=== PATIENT | female | born 1965 | race Caucasian/White ===

== ENCOUNTER 2020-10-25 01:04 | Outpatient (CLI) | payer MEDICAID, SELFPAY ==
--- NOTE | 2020-10-25 | DI.MRI_ITS ---
Exam(s) MR LOWER JOINT RT WO EXAM: MR LOWER JOINT RT WO CLINICAL HISTORY: OA RT KNEE JOINT,M17.11 TECHNIQUE: Multiplanar multisequence MRI of the knee was performed. COMPARISON: CR,DX XR KNEE 3V RT from 11/05/2016 MR MR KNEE RT WO CONTRAST from 11/25/2016 MR MR KNEE RT WO CONTRAST from 11/25/2016 CR XR KNEE 3V RT from 09/21/2020 FINDINGS: EFFUSION: There is a prominent knee joint effusion. There is also a Gutierrez cyst in the medial poplite al fossa which measures 5 cm cephalocaudal length by 1.5 cm AP x 1 cm wide. There is no obvious loos e intra-articular body evident within the joint fluid. MARROW:There is no evidence of fracture, bone contusion, nor osteochondral defects.. There are no si gnificant osseous lesions. PATELLOFEMORAL COMPARTMENT: The quadriceps tendon is intact. The patellar ligament is intact. There is moderate thinning of the retropatellar cartilage over both medial lateral facets. Small foci of degenerative subarticular signal are seen in the posterior patella over the lateral fac et. There are no patellar retinacular tears. No intraosseous signal to suggest recent patellar disl ocation. CRUCIATE LIGAMENTS: The anterior cruciate ligament is intact.Its appearance is unchanged from the Nov 2017 MRI study. Posterior cruciate ligament is also intact. MEDIAL COMPARTMENT/MEDIAL MENISCUS: There is complex tear now evident in the posterior horn medial me niscus with both horizontal and oblique components, this finding not evident on the 2017 study. Ther e is 3 millimeters extrusion with outward bowing of the otherwise intact medial collateral ligament. There is no degenerative subarticular cyst. The tear extends towards the but does not grossly invol ve the anterior horn. There is mild subarticular edema in the medial femoral condyle and some cartil age loss over the weight-bearing surface of the femoral condyle. Small marginal osteophytes evident. No osteochondral defect MEDIAL COLLATERAL LIGAMENT: Outward bowed but otherwise intact LATERAL COMPARTMENT/LATERAL MENISCUS: There is no evidence of lateral meniscal tear.Minimal cartilage changes over the lateral condyle. No subarticular edema nor osteochondral defects in the lateral co mpartment. No marginal osteophytes. ILIOTIBIAL BAND: Intact LATERAL COLLATERAL LIGAMENT COMPLEX: The fibular collateral ligament is intact. The biceps femoris t endon is intact.There is some fluid in the popliteus tendon sheath but no tear of this structure. IMPRESSION: 1. Compared to the prior MRI scan of November 2016 there is now a complex tear of the posterior horn of t he medial meniscus which exhibits both horizontal and oblique components. There is an element of men iscal extrusion but no degenerative meniscal cyst. There is no flipped fragment evident. Some degen erative change medial compartment also noted. 2. Lateral meniscus is intact. Minimal degenerative changes in the lateral compartment. 3. Cruciate and collateral ligaments are intact as is the iliotibial band. 4. There is a prominent joint effusion and there is also a Gutierrez cyst in the medial popliteal fossa w hich exhibits cephalocaudal length 5 cm. No evidence of debris nor intra-articular body within the B isabell's cyst. DATA REPOSITORY:
== END 2020-10-25 01:24 ==
PROVIDERS: Visit Provider Orthopaedic Surgery
DX: M25.561 Pain in right knee (principal); M17.11 Unilateral primary osteoarthritis, right knee; S83.241A Other tear of medial meniscus, current injury, right knee, initial encounter; M25.461 Effusion, right knee; M71.21 Synovial cyst of popliteal space [Baker], right knee
CPT/HCPCS: 73721

== ENCOUNTER 2024-08-04 15:24 | Outpatient (CLI) | payer MEDICAID, SELFPAY ==
--- NOTE | 2024-08-04 08:45 | DI.RAD_ITS ---
Exam(s) XR STANDING ALIGNMENT XR KNEE RT 1V EXAM: XR STANDING ALIGNMENT and XR knee RT 1 V CLINICAL HISTORY: knee pain. TECHNIQUE: 2D digital imaging was performed. Five images were obtained. COMPARISON: CR XR KNEE 3V RT from 09/21/2020 CR XR KNEE 3V RT from 03/06/2022 CR XR KNEE COMPLETE MIN 4V RT from 05/14/2023 FINDINGS: BONES: There is a mild left convex scoliosis of the lumbar spine. The hips are well maintained. In the right knee, there is marked narrowing of the medial femoral tibial joint. Osteophytes are seen i nvolving all 3 joint compartments. There is a small joint effusion. There are dystrophic calcificat ions adjacent to the medial proximal tibia. In the left knee, there is mild joint space narrowing of the medial femoral tibial joint. Osteophytes are seen both medially and laterally. The ankles are well maintained.There is no significant leg length discrepancy. SOFT TISSUE: Normal. IMPRESSION: Bilateral osteoarthritis of the knees, right greater than left. DATA REPOSITORY: RADIATION DOSE DELIVERED:
== END 2024-08-04 15:25 | disposition home or self-care (01) ==
LOC: DIORS 15:25
PROVIDERS: Visit Provider Physician Assistant
DX: M17.0 Bilateral primary osteoarthritis of knee
CPT/HCPCS: 73560; 77073

== ENCOUNTER 2025-01-05 02:34 | Outpatient (CLI) | payer OTHER, SELFPAY ==
[2025-01-05 14:59] LABS: HCT 41.0 % (36.0-46.0); HGB 13.4 g/dL (11.2-15.7); MCH 29.1 pg (27.0-33.0); MCHC 32.7 % (32.0-36.0); MCV 89 fL (80-95); MPV 10.2 fL (8.0-11.0); Platelet Count 283 10^3/uL (130-400); RBC 4.60 10^6/uL (3.93-5.22); RDW 13.4 % (11.7-14.6); RDW-SD 44.2 fL; WBC 9.07 10^3/uL (4.4-10.8)
[2025-01-05 16:00] LABS: Anion Gap 9.4 mmol/L (3-11); BUN 21 mg/dL (7-18); CO2 29.6 mmol/L (21.0-32.0); Calcium 10.0 mg/dL (8.5-10.1); Chloride 101 mmol/L (98-107); Estimated GFR 74.10 (mL/min/1.73m2); Glucose 93 mg/dL (74-106); Potassium 4.0 mmol/L (3.5-5.1); Sodium 140 mmol/L (136-145); TSH 0.02 uIU/mL (0.36-3.74)
== END 2025-01-05 02:35 | disposition home or self-care (01) ==
LOC: LBO 02:35
PROVIDERS: PCP Internal Medicine; Visit Provider Student in an Organized Health Care Education/Training Program
DX: M17.11 Unilateral primary osteoarthritis, right knee (principal); Z01.818 Encounter for other preprocedural examination; E03.9 Hypothyroidism, unspecified
CPT/HCPCS: 36415; 80048; 85027; 84443

== ENCOUNTER 2025-01-17 08:08 | Day surgery (SDC) | payer OTHER, SELFPAY ==
--- NOTE | 2025-01-17 07:13 | W.PM.DSUDISC ---
Date of service: 01/17/25 Discharge Plan Disposition Patient Disposition: Home Condition: Good Discharge Details Reason For Visit: Right knee DJD Attending Provider: Renan Ayers Primary Care Provider: Heather Wills Home Meds and New Rx's Prescriptions: New acetaminophen 500 mg tablet 1,000 mg PO Q8H PRN Qty: 90 0RF Rx Instructions: Take two tablets up to every 8 hours as needed for pain aspirin 81 mg tablet,delayed release (DR/EC) 81 mg PO BID 30 Days Qty: 60 0RF celecoxib [Celebrex] 200 mg capsule 200 mg PO BID PRNQty: 60 0RF Rx Instructions: Take one tablet twice daily for pain and inflammation docusate sodium [Colace] 100 mg capsule 100 mg PO BID Qty: 28 0RF dexamethasone 4 mg tablet 4 mg PO DAILY Qty: 2 0RF Rx Instructions: Take one tablet once daily for two days gabapentin 300 mg capsule 300 mg PO QHS Qty: 14 0RF Rx Instructions: Take one tablet at bedtime oxycodone 5 mg tablet 5 mg PO Q4H PRNQty: 18 0RF Rx Instructions: Take one tablet up to every 4 hours as needed for severe postoperative pain Continued atorvastatin 10 mg tablet 10 mg PO DAILY hydrochlorothiazide 25 mg tablet 25 mg PO DAILY levothyroxine 112 mcg capsule 112 mcg PO DAILY lisinopril 2.5 mg tablet 2.5 mg PO DAILY omeprazole 20 mg capsule,delayed release(DR/EC) 20 mg PO DAILY Discharge Instructions Additional Instructions: Total Knee Discharge Instructions Activity: The most important activity is to walk and to work on gentle motion (both flexion and extension). You should try to take short walks a few times a day. It is important that when resting you work on keeping the knee straight. Avoid putting a pillow behind the knee as this will encourage flexion. Work on range of motion exercises as provided by Physical Therapy. - Start outpatient physical therapy within 2 weeks. - You should wear the AVRIL hose on both legs for 2 weeks. You may remove these at night. You may also use any compression sock in place of the AVRIL hose. - Utilize [employer] to review exercises, see videos on exercises and obtain basic information pertaining to your surgery and your recovery. Dressing: Remove the Gustavo wrap by 2 days after your surgery and put on the AVRIL stocking given to you from the hospital. Keep the surgical dressing (underneath the GUSTAVO wrap) in place for at least one week. After the first week it may be removed and replaced with light gauze and tape or nothing. The wound and dressing may get wet after 3 days but avoid soaking the dressing or otherwise it will need to be changed. Many people prefer covering the dressing with cling wrap (saran wrap) to minimize it from getting soaked. If it gets wet, just pat dry. If it starts to peel off then it will need to be changed. Medications: - You should take Tylenol and anti-inflammatory Celebrex as your primary pain control medications. If the Celebrex is too expensive or not covered, please call the office for another alternative (Advil/Ibuprofen or Naproxen/Aleve) - You have been prescribed a stronger pain medication Oxycodone for breakthrough pain, take as needed as prescribed. - You take a stomach acid reduction agent Omeprazole at baseline - continue with this medication to help reduce stomach acid and reflux. - You have been prescribed Gabapentin to take at night for restlessness and nerve pain. - You will be taking Aspirin 81mg twice a day for DVT prevention unless instructed otherwise. - You have also been prescribed Decadron to take to control post-operative nausea and pain. You will start this tomorrow. - If you have constipation you should take Colace (which has been prescribed) or Miralax (which is available [id number]). It takes most people 3-4 days to have a bowel movement. Follow-up: 2 weeks If you have any acute concerns or questions, please do not hesitate to contact the office at [phone]. You may contact Dr. Ayers with any questions after hours through the hospital at [phone] or on his cell phone at [phone]. Referrals: Renan Ayers MD [ [facility] STAFF PHYSICIAN, Orthopaedic Surgical] Equipment/Supplies: Walker Activity:: Elevate Remove Dressings/Wound Care:: Do Not Remove Shower/Bathe:: Cover Diet:: As Tolerated Discharge Orders Discharge Orders: Discharge Order (Routine); Ordered 01/17/25 Ordered By: Shelby Garcia
[2025-01-17 08:40] VITALS: BP 131/71; PULSE 89; RESP 16; TEMP 36.3; O2SAT 100
[2025-01-17] MEDS: Gabapentin 300 MG CAP PO (08:56)
[2025-01-17] MEDS: Acetaminophen 500 MG TAB 1000 MG PO (08:56)
[2025-01-17] MEDS: Celecoxib 200 MG CAP 400 MG PO (08:56)
[2025-01-17] MEDS: Lactated Ringers 1,000 ML 80 ML IV (09:08)
--- NOTE | 2025-01-17 09:39 | PDOC.ANES ---
Date of service: 01/17/25 Time of Service: 09:30 Anesthesia Note Report Anesthesia Note: Semaglutide was not on original med list. semaglutide found in cardiac note med list and pt confirmed she is taking semaglutide and last dose was thursday. discussed prohibitive risk of gastric aspiration with pt and reason to cancel elective prceudre; pt verbalised understanding
--- NOTE | 2025-01-17 09:40 | NUR.NOTE ---
Nursing Note: patient's surgical case was cancelled today related to medication the patient had been taking. Patient's IV was already in place and had gotten pre-op cocktail, patient's IV was D/C'd prior to discharge. patient dressed self and left building at 0942.
== END 2025-01-17 08:09 | disposition home or self-care (01) ==
LOC: SUR 08:08
PROVIDERS: PCP Internal Medicine; Visit Provider Student in an Organized Health Care Education/Training Program
DX: Z53.8 Procedure and treatment not carried out for other reasons (principal); Z79.899 Other long term (current) drug therapy; M17.11 Unilateral primary osteoarthritis, right knee
CPT/HCPCS: J0665; J0666; J1100; J2003; J2250; J2401; J2405

== ENCOUNTER 2025-02-08 06:00 | Day surgery (SDC) | payer OTHER, SELFPAY ==
[2025-02-08] VITALS (17 sets, daily range): BP systolic 97–141; BP diastolic 47–81; PULSE 67–81; RESP 11–24; TEMP 36–37; O2SAT 90–100; BMI 37.7
[2025-02-08] MEDS: Gabapentin 300 MG CAP PO (06:40)
[2025-02-08] MEDS: Acetaminophen 500 MG TAB 1000 MG PO (06:40)
[2025-02-08] MEDS: Celecoxib 200 MG CAP 400 MG PO (06:40)
[2025-02-08] MEDS: Lactated Ringers 1,000 ML 80 ML IV (06:41)
--- NOTE | 2025-02-08 07:04 | W.PM.DSUDISC ---
Date of service: 02/08/25 Discharge Plan Disposition Patient Disposition: Home Condition: Good Discharge Details Reason For Visit: Right knee DJD Attending Provider: Renan Ayers Primary Care Provider: Heather Wills Home Meds and New Rx's Prescriptions: New acetaminophen 500 mg tablet 1,000 mg PO Q8H PRN Qty: 90 0RF Rx Instructions: Take two tablets up to every 8 hours as needed for pain aspirin 81 mg tablet,delayed release (DR/EC) 81 mg PO BID 30 Days Qty: 60 0RF celecoxib [Celebrex] 200 mg capsule 200 mg PO BID PRNQty: 60 0RF Rx Instructions: Take one tablet twice daily for pain and inflammation docusate sodium [Colace] 100 mg capsule 100 mg PO BID Qty: 28 0RF dexamethasone 4 mg tablet 4 mg PO DAILY Qty: 2 0RF Rx Instructions: Take one tablet once daily for two days gabapentin 300 mg capsule 300 mg PO QHS Qty: 14 0RF Rx Instructions: Take one tablet at bedtime oxycodone 5 mg tablet 5 mg PO Q4H PRNQty: 18 0RF Rx Instructions: Take one tablet up to every 4 hours as needed for severe postoperative pain Continued atorvastatin 10 mg tablet 10 mg PO DAILY hydrochlorothiazide 25 mg tablet 25 mg PO DAILY levothyroxine 112 mcg capsule 112 mcg PO DAILY lisinopril 2.5 mg tablet 2.5 mg PO DAILY omeprazole 20 mg capsule,delayed release(DR/EC) 20 mg PO DAILY Wegovy 2.4 mg/0.75 mL pen injector 2.4 mg SUBCUT DIRECTED Discharge Instructions Additional Instructions: Total Knee Discharge Instructions Activity: The most important activity is to walk and to work on gentle motion (both flexion and extension). You should try to take short walks a few times a day. It is important that when resting you work on keeping the knee straight. Avoid putting a pillow behind the knee as this will encourage flexion. Work on range of motion exercises as provided by Physical Therapy. - Start outpatient physical therapy within 2 weeks. - You should wear the AVRIL hose on both legs for 2 weeks. You may remove these at night. You may also use any compression sock in place of the AVRIL hose. - Utilize [employer] to review exercises, see videos on exercises and obtain basic information pertaining to your surgery and your recovery. Dressing: Remove the Gustavo wrap by 2 days after your surgery and put on the AVRIL stocking given to you from the hospital. Keep the surgical dressing (underneath the GUSTAVO wrap) in place for at least one week. After the first week it may be removed and replaced with light gauze and tape or nothing. The wound and dressing may get wet after 3 days but avoid soaking the dressing or otherwise it will need to be changed. Many people prefer covering the dressing with cling wrap (saran wrap) to minimize it from getting soaked. If it gets wet, just pat dry. If it starts to peel off then it will need to be changed. Medications: - You should take Tylenol and anti-inflammatory Celebrex as your primary pain control medications. If the Celebrex is too expensive or not covered, please call the office for another alternative (Advil/Ibuprofen or Naproxen/Aleve) - You have been prescribed a stronger pain medication Oxycodone for breakthrough pain, take as needed as prescribed. - You take a stomach acid reduction agent Omeprazole at baseline - continue with this medication to help reduce stomach acid and reflux. - You have been prescribed Gabapentin to take at night for restlessness and nerve pain. - You will be taking Aspirin 81mg twice a day for DVT prevention unless instructed otherwise. - You have also been prescribed Decadron to take to control post-operative nausea and pain. You will start this tomorrow. - If you have constipation you should take Colace (which has been prescribed) or Miralax (which is available [id number]). It takes most people 3-4 days to have a bowel movement. Follow-up: 2 weeks If you have any acute concerns or questions, please do not hesitate to contact the office at [phone]. You may contact Dr. Ayers with any questions after hours through the hospital at [phone] or on his cell phone at [phone]. Referrals: Renan Ayers MD [ [facility] STAFF PHYSICIAN, Orthopaedic Surgical] Equipment/Supplies: Walker Activity:: Elevate Remove Dressings/Wound Care:: Do Not Remove Shower/Bathe:: Cover Diet:: As Tolerated Discharge Orders Discharge Orders: Discharge Order (Routine); Ordered 02/08/25 Ordered By: Shelby Garcia
--- NOTE | 2025-02-08 07:08 | W.ANESPRE ---
General Info Date of Service Date Performed: 02/08/25 Height: 5 ft 4 in Weight: 99.7 kg Body Mass Index (BMI): 37.7 Surgical Procedure: Operation Date: 02/08/25 07:40 Proposed Procedure Side Surgeon p Knee Total Arthroplasty, Cementless CR Right Renan Ayers MD Meds Allergies and Home Medications Allergies Allergy/AdvReac Type Severity Reaction Status Date / Time codeine Allergy Mild Hives Verified 02/08/25 06:14 Penicillins Allergy Mild Hives Verified 02/08/25 06:14 Home Medication ?Medication ?Instructions ?Recorded atorvastatin 10 mg tablet 10 mg PO DAILY 07/19/24 hydrochlorothiazide 25 mg tablet 25 mg PO DAILY 07/19/24 levothyroxine 112 mcg capsule 112 mcg PO DAILY 07/19/24 lisinopril 2.5 mg tablet 2.5 mg PO DAILY 07/19/24 omeprazole 20 mg capsule,delayed 20 mg PO DAILY 07/19/24 release semaglutide (weight loss) 2.4 2.4 mg subcut DIRECTED 02/07/25 mg/0.75 mL subcutaneous pen injector (Wegovy) acetaminophen 500 mg tablet 1,000 mg (2 x 500 mg) PO Q8H PRN 02/08/25 pain #90 tabs aspirin 81 mg tablet,delayed 81 mg PO BID 30 days #60 tabs 02/08/25 release celecoxib 200 mg capsule (Celebrex) 200 mg PO BID PRN #60 caps 02/08/25 dexamethasone 4 mg tablet 4 mg PO DAILY #2 tabs 02/08/25 docusate sodium 100 mg capsule 100 mg PO BID #28 caps 02/08/25 (Colace) gabapentin 300 mg capsule 300 mg PO QHS #14 caps 02/08/25 oxycodone 5 mg tablet 5 mg PO Q4H PRN #18 tabs 02/08/25 Current Visit Medications: Current Medications Generic Name Dose Route Start Last Admin Trade Name Freq PRN Reason Stop Dose Admin Acetaminophen 1,000 mg 02/08/25 06:00 02/08/25 06:40 Acetaminophen 500 Mg Tab PO 02/08/25 23:59 1,000 mg PREOP MILES Administration Celecoxib 400 mg 02/08/25 06:00 02/08/25 06:40 Celecoxib 200 Mg Cap PO 02/08/25 23:59 400 mg PREOP MILES Administration Gabapentin 300 mg 02/08/25 06:00 02/08/25 06:40 Gabapentin 300 Mg Cap PO 02/08/25 23:59 300 mg PREOP MILES Administration Hydromorphone HCl 0.5 mg 02/08/25 07:01 Hydromorphone 2 Mg/Ml Syr IVP 03/10/25 07:00 Q2H PRN PRN Ringer's Solution 1,000 mls @ 80 mls/hr 02/08/25 06:00 02/08/25 06:41 IV 02/08/25 23:59 80 mls/hr INFUSION MILES Administration Cefazolin Sodium/Dextrose 2 gm in 50 mls @ 100 mls/hr 02/08/25 06:00 Ancef Duplex IVPB 02/08/25 23:59 PREOP MILES Tranexamic Acid/Sodium Chloride 1,000 mg in 100 mls @ 600 mls/hr 02/08/25 06:00 IVPB 02/08/25 23:59 PREOP MILES Cefazolin Sodium/Dextrose 1 gm in 50 mls @ 100 mls/hr 02/08/25 08:00 Ancef Duplex IVPB 02/09/25 00:29 Q8H MILES IV Miscellaneous Supplies 1 each 02/08/25 06:00 Iv Access IV 02/08/25 23:59 DIRECTED MLIES Oxycodone HCl 0 mg 02/08/25 07:01 Oxycodone 5 Mg Tab PO 03/10/25 07:00 Q3H PRN PRN Pain Sodium Chloride 0 ml 02/08/25 06:00 Normal Saline Flush 10 Ml Syr IV 02/08/25 23:59 PRN PRN Sodium Chloride 0 ml 02/08/25 06:00 Normal Saline 10 Ml Vial IJ 02/08/25 23:59 DIRECTED PRN Sterile Water 0 ml 02/08/25 06:00 Water,Injection,Sterile 10 Ml Vial IJ 02/08/25 23:59 DIRECTED PRN Tranexamic Acid 1,300 mg 02/08/25 07:01 Tranexamic Acid 650 Mg Tab PO 03/10/25 07:00 ONCE PRN postoperative PFSH Active Problems Active Problems: Problem Status Onset Code History of total right knee replacement Acute 01/17/25 Z96.651 Type 2 diabetes mellitus Acute E11.9 Severe obesity Acute E66.01 Lumbar spondylosis Acute M47.816 Hypothyroidism Chronic E03.9 Hypertensive disorder Chronic I10 Chronic pain Chronic G89.29 Medical History Medical History History of EKG (08/23/18) Restless legs Chest pain Surgical History Surgical History History of section History of tubal ligation History of lumbosacral spine surgery History of arthroscopy of right knee Tobacco Smoking/Tobacco Use Status: Former Tobacco Use Passive smoking exposure: No Alcohol Alcohol Intake: never Substance Use Substance use: Never Substance use type: does not use Vital Signs and Lab Results Vital Signs Most Recent Vital Signs in EMR: Most Recent Vital Signs Temp Pulse Resp BP Pulse Ox 36.6 C 76 18 142/59 H 99 02/08/25 06:53 02/08/25 06:53 02/08/25 06:53 02/08/25 06:53 02/08/25 06:53 Anesthesia Assessment and Plan Anesthesia History Personal History: PONV and Delayed Emergence Family History: No Family History of Anesthesia Complications Exercise Tolerance Exercise Tolerance: Metabolic Equivalents>4 Pertinent Negatives Pertinent Negatives: No Symptoms of GERD Cardiac & Pulmonary Exam Cardiac Exam: Normal S1/S2 Heart Sounds Pulmonary Exam: Clear Bilateral Breath Sounds Implantable Cardiac Device Does patient have a Pacemaker or an ICD?: No Airway Exam Known Difficult Airway: No Mallampati Class: 2 Mouth Opening: Normal (> 3cm) Thyromental Distance: Greater than 3 cm Neck Range of Motion: Full ROM Neck Circumference: Normal Teeth Condition: Removable Dentures/Plates Upper ASA Classification ASA Score: ASA 3 Emergency Case?: No NPO Status NPO Status: NPO Clears >2 hours, Solids >8 hours Anesthesia Plan Resuscitation Status: Full Code Anesthesia Technique: Spinal Anesthesia Airway Planned: Natural Airway Pain Management: Surgeon and patient request nerve block Monitors Used: Standard Monitors
--- NOTE | 2025-02-08 07:14 | W.PREOPHP ---
Assessment and Plan Assessment and plan (1) Osteoarthritis of right knee: Status: Resolved Assessment and plan: Jaqueline is a 59-year-old female who has known severe arthritis about the right knee. She has failed other nonoperative options and is here today for right knee replacement. See previous office note and primary care physician preoperative clearance. She has met all her medications appropriately. She is no contraindication to proceed with surgery. Once again, I did reviewed the technical details of knee replacement. I reviewed the necessary time for rehabilitation following the procedure. Furthermore, I went over in detail the possible complications of knee replacement. These include but are not limited to bleeding, infection, pain, stiffness, weakness, damage to nerves, damage to vessels, damage to muscle and tendon, fracture, leg length inequality, wound healing complications, instability, component loosening, and blood clot. Questions were answered. I again expressed that this is a surgery to improve functional quality of life. After a review of the presented information and risks, Jaqueline desired to proceed. History of Present Illness History of Present Illness Chief Complaint: Right knee arthritis Narrative: Jaqueline is a 59-year-old female who has known severe arthritis about the right knee. She was previously scheduled for the right knee replacement few weeks ago but unfortunately had not stopped her Wegovy. She now has held this medication appropriately. She has previously been cleared by her medical team. She says preoperative teaching and evaluations in the office. Please see these notes in the chart. She has had no other changes to her health. No chest pain or shortness of breath. Review of Systems All systems reviewed & are unremarkable except as noted in HPI and below PFSH All Active Problems History of total right knee replacement (Acute 01/17/25) Type 2 diabetes mellitus (Acute) Severe obesity (Acute) Lumbar spondylosis (Acute) Hypothyroidism (Chronic) Hypertensive disorder (Chronic) Chronic pain (Chronic) Medical History History of EKG (08/23/18) Restless legs Chest pain Surgical History History of section History of tubal ligation History of lumbosacral spine surgery History of arthroscopy of right knee Social History Smoking/Tobacco Use Status: Former Tobacco Use Tobacco: How many years used: 20 Smoking risk assessment performed?: Yes Alcohol Intake: never Drug use: Never Substance use type: does not use Housing: house Additional Social history: unable to assess Meds Allergies and Home Medications Allergies Allergy/AdvReac Type Severity Reaction Status Date / Time codeine Allergy Mild Hives Verified 02/08/25 06:14 Penicillins Allergy Mild Hives Verified 02/08/25 06:14 Home Medications ?Medication ?Instructions ?Recorded ?Confirmed ?Type atorvastatin 10 mg tablet 10 mg PO DAILY 07/19/24 02/08/25 History hydrochlorothiazide 25 mg tablet 25 mg PO DAILY 07/19/24 02/08/25 History levothyroxine 112 mcg capsule 112 mcg PO DAILY 07/19/24 02/08/25 History lisinopril 2.5 mg tablet 2.5 mg PO DAILY 07/19/24 02/08/25 History omeprazole 20 mg capsule,delayed 20 mg PO DAILY 07/19/24 02/08/25 History release semaglutide (weight loss) 2.4 2.4 mg subcut DIRECTED 02/07/25 02/07/25 History mg/0.75 mL subcutaneous pen injector (Mitch) acetaminophen 500 mg tablet 1,000 mg (2 x 500 mg) PO Q8H PRN 02/08/25 Rx pain #90 tabs aspirin 81 mg tablet,delayed 81 mg PO BID 30 days #60 tabs 02/08/25 Rx release celecoxib 200 mg capsule (Celebrex) 200 mg PO BID PRN #60 caps 02/08/25 Rx dexamethasone 4 mg tablet 4 mg PO DAILY #2 tabs 02/08/25 Rx docusate sodium 100 mg capsule 100 mg PO BID #28 caps 02/08/25 Rx (Colace) gabapentin 300 mg capsule 300 mg PO QHS #14 caps 02/08/25 Rx oxycodone 5 mg tablet 5 mg PO Q4H PRN #18 tabs 02/08/25 Rx Exam Const General: cooperative, healthy appearing, comfortable and no acute distress Resp Effort & Inspection: normal respiratory effort Auscultation: clear to auscultation bilaterally Cardio Rate: regular rate Rhythm: regular rhythm Results Last Vital Signs Temp 36.6 C 02/08/25 06:53 Pulse 76 02/08/25 06:53 Resp 18 02/08/25 06:53 BP 142/59 H 02/08/25 06:53 Pulse Ox 99 02/08/25 06:53
[2025-02-08] MEDS: ceFAZolin 2 GM/50 ML BAG IVPB (07:56)
[2025-02-08] MEDS: TRANEXAMIC ACID/SOD. CHL. 1,000 MG/100 ML BAG 600 MG IVPB (08:04)
--- NOTE | 2025-02-08 08:15 | W.ANESNERVE ---
Nerve Block Single Injection Procedure Date and Time Date Performed: 02/08/25 Procedure Start: 07:22 Location Where Procedure Performed Procedure Location: Day Surgery Unit Reason Performed: Postoperative Analgesia Requesting Provider: Renan Ayers Timeout Performed Timeout Performed: Yes Monitoring Used ECG, Blood Pressure, SpO2 and See EMR for corresponding vital signs Sterility Sterility: Hand Hygiene, Surgical Cap, Surgical Mask, Sterile Gloves, Eye Protection and Chlorhexidine Sedation Given During Procedure Sedation Given (Indicate Dose Given): Versed IV Dose:: 2mg IVP Patient Mental Status Patient Mental Status: Sedate with meaningful communication Nerve Block 1st Nerve Block: Laterality: Right Block Type: Adductor Canal Ultrasound Image Saved?: Yes Needle / Catheter Used: 120mm SonoPlex II Local Anesthetic Bolus (Indicate Dose Given): Lidocaine used for local infiltration of skin, Injected in 3-5ml increments after negative blood aspiration, Bupivacaine 0.5% Dose:: 12cc/0.5% (60mg) and Exparel Dose:: 10cc/1.3% (133mg) Additives (Indicate Dose Given): Epinephrine to make 1:200,000 (5mcg/ml) Dose:: 60mcg (added to 0.5% Bupivacaine) Ultrasound: Sterile probe cover and gel used Nerve Stimulator: Not Used Paresthesia: None Procedure Tolerated: No Complications and Patient tolerated well Procedure Outcome: Successful Performed By: Aung Bocanegra
--- NOTE | 2025-02-08 09:00 | ROE_ITS ---
Operative Note Operative Note PRE-OP DIAGNOSIS: Right Knee Osteoarthritis POST-OP DIAGNOSIS: same PROCEDURE: Right Total Knee Replacement SURGEON: Renan Ayers WOODS MANAGER: Shelby Garcia ANESTHESIA TYPE: Spinal Refer to Anesthesia Record ESTIMATED BLOOD LOSS: 50 PATHOLOGY: none sent TOURNIQUET TIME: 0 COMPLICATIONS: None Patient was transported to: PACU Patient's condition: stable Implants: 1. Depuy Attune Cementless Cruciate Retaining Femoral Component, Size 6 Narrow 2. Depuy Attune Cementless Fixed Bearing Tibial Component, Size 5 3. Depuy Attune 6x8mm CR/FB Poly Indications: I have seen Jaqueline in clinic for symptoms of knee arthritis, confirmed with radiographic findings. She has exhausted nonoperative methods and was having significant limitations in daily function and desired better function and less pain. I discussed the technical details of a knee replacement. I explained the risks of the procedure to include, but not limited to, bleeding, infection, pain, stiffness, fracture, damage to nerves and vessels, damage to muscles and tendons, loosening, need for repeat procedure, blood clot and cardiopulmonary demise. Despite these risks, Jaqueline elected to proceed. Findings: There was significant signs of arthritis throughout the knee mostly involving the medial compartment. Procedure Description: Jaqueline was greeted in the preoperative holding area where the correct side was identified and marked. The consent was reviewed with the patient and signed. The history and physical was updated. All questions were answered. Preoperative medications were administered: Acetaminophen 1000mg, Celebrex 400mg, and Gabapentin 300mg. An adductor canal block was then administered by the anesthesia team in the DSU. She was taken back to the operating room. A spinal anesthestic was then administered. The patient was placed into the supine position on the operating room table. Posts were placed for positioning during the procedure. All bony prominences were well padded. Prophylactic antibiotics in the form of Cefazolin were administered. 1g of Tranxemic Acid was given intravenously within 30 minutes of incision. The right leg was then prepped with Chloraprep and draped in a standard fashion with impervious stockinette. A second prep with Chloraprep was performed prior to application of Iodine impregnated skin protection. A timeout to confirm correct identity, side and site, procedure, allergies, anesthesia, and medical concerns was performed. With the knee in some flexion, a midline incision was made overlying the knee. Full thickness skin flaps were raised once the extensor mechanism was encountered. These were raised medially and laterally. Any bleeding was controlled with electrocautery. Once the extensor mechanism was fully exposed, a medial parapatellar arthrotomy was performed in a flexed position. All bleeding from the arthrotomy and the geniculate arteries was coagulated. A medial subperiosteal peel was performed with electrocautery to the midcoronal plane. The fat pad was removed while keeping the patellar tendon protected. The anterior distal femur synovium was removed for later visualization. The ACL and PCL were resected and the anterior horn of the lateral meniscus was transected. The knee was then flexed with the patella everted. Large osteophytes from the tibia were removed. Large osteophytes from the femur were removed. Using a step drill, and based on preoperative templating, the femoral canal was entered. This was done with a step drill without any difficulty. The intramedullary distal femoral cut guide was inserted, set to a 5 degree valgus cut and 9mm cut thickness. The distal femoral cut guide was then held in position and pinned. With the soft tissues protected, the distal cut was performed. This was passed over a few times to ensure a planar cut. I then turned attention to the tibia. The extramedullary guide was placed onto the leg. The distal aspect was slid medial to adjust for position of center of ankle and stay in line with shaft of the tibia. Approximately 5 degrees of posterior slope was kept in the proximal cutting guide. The center of the guide was aligned with the PCL. The stylus was used to assess cut thickness. The medial side, most involved side, was set for a 4mm cut. This was then held in position and pinned into place with 2 additional pins and a cross pin for stability. The medial and lateral collateral ligaments were protected and the cut was performed. With this completed, it was assessed and noted to be of appropriate dimensions. The guide was removed. A spacer block was inserted and the knee was brought into extension. The 7mm spacer block provided full extension, without hyperextension and with stability of both the medial and lateral collateral ligaments was assessed. The pins from the femur and the tibia were then removed. The distal femur was then sized. The anterior stylus was placed onto the lateral ridge of the anterior femur. This indicated a size 6 femur. The external rotation of the guide was adjusted to 5 degrees to match the epicondylar axis, perpendicular to Guillaume?s line. The 4-in-1 cutting guide was the placed. The posterior medial femur cut was evaluated and appeared of good thickness. The spacer block was inserted underneath the cutting guide and stability was confirmed in 90 degrees of flexion. An demetrio wing was used to confirm appropriate position of the anterior cut to avoid notching. This cutting guide was ensured to be flush on the cut surface and then pinned into place with headed pins. While protecting the soft tissues, quad tendon, and collateral ligaments, the anterior and posterior cuts were performed with a saw. The central two pins were removed and the posterior and anterior chamfers were cut next. The notch-cutting guide was placed. This was pinned to lateralize the femoral component as much as possible while keeping it flush on the cut surface. This was then pinned into position. A reciprocating saw was used to make the notch cut. A rasp smoothed the cut surfaces. The medial and lateral menisci were removed. A trial femoral component was then inserted, impacted down to the cut surfaces, and the lug holes were drilled. A provisional trial tibial component was placed and the knee was brought through range of motion. The polyethylene was trialed until there was good flexion and extension with excellent stability to the medial and lateral collaterals. The patella was tracking without thumbs. A size 8mm polyethylene component provided the best range of motion and stability with less than 2mm gapping with medial and lateral stress and full extension without significant hyperextension. The tibial cut surface was fully exposed. The tibia was then sized as a 5. The tibia had been previously marked during trialing to correspond to the center of the tibial component to help with rotation. The trial was aligned to this antonia, approximately rotated to the medial 1/3rd of the tibial tubercle. The trial was pinned into place. The tibia was prepared with a reamer and a keel punch and lug holes. The trial components were removed. The final components were opened on the back table. The periosteal and capsular tissues, especially posteriorly, around the knee were then systematically injected with a periarticular cocktail consisting of 246mg of Ropivacaine, 0.5mg of Epinephrine, 0.08mg of Clonidine, and 30mg of Ketorolac, diluted to 100cc. On the back table, with the implants opened. The cementless knee components were placed. Starting with the tibial component, the tibia was subluxed anteriorly and the lug holes of the component were lined up. The tibia was then impacted with an impactor and mallet until the tibial component was in contact with the tibia. Then, the femoral component was inserted. The lug holes were aligned and the component was impacted into position. The final polyethylene component was inserted. The knee was irrigated with Surgiphor Betadine solution. This was allowed to sit in the knee for 3 minutes and then it was irrigated out with saline. The patella was tracking with a no-thumbs technique. A complete synovectomy was performed around the periphery of the patella. A lateral facetectomy was also performed. The capsule was then reapproximated with a No. 1 Vicryl at multiple locations. The capsule was finally closed with a No. 2 Stratafix, barbed suture. Deep tissues were then reapproximated with 0 Vicryl and 2-0 Vicryl. The skin was closed with a running 3-0 Monocryl in a subcuticular fashion. This was reinforced with skin glue. A Mepilex silver dressing was applied along with a frrb-dy-otqoh LAURA wrap. A CryoCuff was applied. Jaqueline was transferred to the hospital bed without difficulty an suffering no apparent complication. She has a good prognosis. Physical therapy will start today and without restrictions, weight-bearing as tolerated. Aspirin 81mg BID will be used for DVT prophylaxis. Date of Procedure: 02/08/25
--- NOTE | 2025-02-08 10:48 | W.ANESPOSTOP ---
Postoperative Evaluation Date, Time and Location Date Performed: 02/08/25 Time Performed: 10:48 Patient Location: Day Surgery Unit Vital Signs Most Recent Imported Vital Signs: Most Recent Vital Signs Temp Pulse Resp BP Pulse Ox 36 C L 77 18 126/71 99 02/08/25 09:48 02/08/25 10:36 02/08/25 10:36 02/08/25 10:36 02/08/25 10:36 Pain Score Most Recent Pain Score: Most Recent Pain Score Pain Level 1 02/08/25 10:36 Assessment Mental Status: Awake (Alert & Oriented to Patient Baseline) Airway and Respiratory Function: Patent airway with normal (patient baseline) respiratory exam Cardiovascular Function: Hemodynamically Stable Hydration Status: Adequately Hydrated Nausea & Vomiting: No Nausea or Vomiting Pain: Pain is tolerable per patient Peripheral Nerve Block: Regional nerve block not resolved at time of post operative discharge
--- NOTE | 2025-02-08 12:09 | PT.INIE ---
PT Notes Visit Reasons: Right knee DJD Physical Therapy Day Surgery Initial Evaluation Date:02/08/2025 Referring Doctor: Shelby Garcia NP/ Dr Ayers PT Orders: PT CONSULT: s/p Ortho surgery Precautions: WBAT RLE with AD Patient Profile/Admitting Diagnosis: Bill is a 59yo female presenting s/p elective right TKA under spinal anesthesia by Dr Ayers on 02/08/2025. Post op uncomplicated PMHX:History of total right knee replacement (Acute 01/17/25) Type 2 diabetes mellitus (Acute) Severe obesity (Acute) Lumbar spondylosis (Acute) Hypothyroidism (Chronic) Hypertensive disorder (Chronic) Chronic pain (Chronic) Medical History History of EKG (08/23/18) Restless legs Chest pain Surgical History History of section History of tubal ligation History of lumbosacral spine surgery History of arthroscopy of right knee Social History/Home Situation:Lives alone in an efficiency apt with 1 step to enter. Pt independent with ADL, shopping, meal prep. 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 (+) drives. Equipment Owned/DME: cane: Pt has a borrowed FWW and 4WW Subjective: Pt states she is ready to get moving. Objective: [] General Observation: female semireclined with cryo-cuff to right knee, niece present in room, Pt appeared anxious to get moving and to go home. Mental Status: A+Ox4, able to follow instructions, agreeable to participate , Pain: 2/10 right knee ROM: [] BUE: WFL Right Lower Extremity: hip and ankle WNL; knee 0-108 degrees Left Lower Extremity: WNL Strength: [] BUE 5/5 Right Lower Extremity: Quad 3/5, quad set strong; (-) lag with SLR shortened range; hamstring 2+/5 Left Lower Extremity: 5/5 Sensation:Intact to touch and pain Bed Mobility/Transfers: [] Supine to sit Independent Sit to stand SBA Stand to sit SBA Bed to chair with FWW SBA Gait: ambulates 125 feet with FWW with reciprocal pattern SBA demonstrating reduced R knee flexion during swing phase Stairs: 3 4 steps? and 2 6 steps with rails SBA with continuous cues for sequencing step to pattern Balance: [] Static Sitting: Normal Dynamic Sitting: Good + Static Standing: Normal without UE support Dynamic Standing: Good with 1 UE support Special Tests: [] Mobility Limitations Standardized Measure [] [facility] AM-PAC 6 clicks Basic Mobility Inpatient Short Form: [] Raw Score: 23 CMS Score: 11.20% Informed Consent/Education: Patient instructed in purpose of PT consult. Treatment: 29615: Packet containing TKA exercise protocol has been given to patient. Education and training on initial set of 5 reps of exercises that can be done at home have been completed with patient. Assessment: Patient is a 59yo female who presents with clinical signs and symptoms consistent with current/admitting diagnoses that have resulted to mobility limitations, gait instability, generalized weakness, and impairment of motor control as demonstrated by the following impairment level findings: 1. Decreased strength to right knee major muscle groups 2. Impaired standing balance 3. Limitation of joint range of motion in right knee 4. Pain right knee 5. impaired functional activity tolerance Impairments are contributing to the following functional limitations: 1. Inability to safely ambulate without assistive device 2. Increase completion time for mobility ADL performance 3. Increased fall risk Patient is assessed as a low complexity based on the following: History: 59-year-old female with impairment level findings, functional limitations, and past medical history as indicated above Examination: Demonstrable impairment in strength, balance, and mobility level with underlying impairments and functional limitations as documented above Presentation: stable Decision Making: low Goals: N/A. PT evaluation and 1-2 treatment sessions only for functional mobility training using recommended AD and for HEP instruction. Plan of Care/Treatment Plan: N/A. PT evaluation and 1-2 treatment session only for functional mobility training using recommended AD and for HEP instruction. DISCHARGE RECOMMENDATIONS: Home with HEP and Outpatient PT as scheduled. Pt instructed to utilize FWW TREATMENT CODE/TIME: [id number] Thank you for the opportunity to participate in the care of this patient. Please sign an return this page within 30 days if you agree with the above POC. Thank you! Phys[facility]
== END 2025-02-08 12:00 | disposition home or self-care (01) ==
PROVIDERS: PCP Internal Medicine; Visit Provider Student in an Organized Health Care Education/Training Program
PROC: (CPT 27447; principal; 2025-02-08 07:30)
DX: M17.11 Unilateral primary osteoarthritis, right knee (principal); G89.18 Other acute postprocedural pain
CPT/HCPCS: 27447; 64447; 97110; 97161; C1776; J0166; J0665; J0666; J0690; J1100; J2003; J2250; J2371; J2405; J2704; J3010

== ENCOUNTER 2025-02-23 14:41 | Outpatient (CLI) | payer OTHER, SELFPAY ==
--- NOTE | 2025-02-23 13:38 | DI.RAD_ITS ---
Exam(s) XR KNEE RT 1V XR STANDING ALIGNMENT EXAM: XR STANDING ALIGNMENT CLINICAL HISTORY: 1ST POST OP R TKA. TECHNIQUE: 2D digital imaging was performed. Standing AP views were performed from the pelvis through the ankles. Lateral view of the right knee COMPARISON: CR XR STANDING ALIGNMENT from 08/04/2024 CR XR KNEE RT 1V from 02/23/2025 FINDINGS: BONES: No acute fracture is present. No bony destructive lesion is seen. Leg length discrepancy: Minimal overall leg length discrepancy, with the right femoral head prior projecting roughly 5 millimeters superior to the left.. JOINTS: Knees: Status post placement of right knee prosthesis. The alignment appears satisfactory. There are mild degenerative changes of the medial femoral tibial joint of the left knee. The ankle joints are unremarkable. The hip joints are unremarkable. SOFT TISSUE: Left lower extremity venous varicosities. IMPRESSION: Status post placement of right knee prosthesis. Mild overall leg length discrepancy. DATA REPOSITORY: RADIATION DOSE DELIVERED:
== END 2025-02-23 14:42 | disposition home or self-care (01) ==
LOC: DIORS 14:41
PROVIDERS: PCP Internal Medicine; Visit Provider Physician Assistant
DX: Z96.651 Presence of right artificial knee joint (principal)
CPT/HCPCS: 73560; 77073